=== PATIENT | male | born 1990 | race Caucasian/White ===

== ENCOUNTER 2022-02-10 01:55 | Emergency (ER) | payer OTHER ==
[~2022-02-10] VITALS: Ht 165.1 cm; Wt 65.8 kg
[2022-02-10 02:19] VITALS: BP 131/90
--- NOTE | 2022-02-10 04:30 | NUR ---
SEEN AND EXAMINED BY [facility]
[2022-02-10] MEDS ORDERED: LORA-476 PO (04:36)
[2022-02-10 04:50] VITALS: BP 120/78
== END 2022-02-10 04:50 | disposition home or self-care (01) ==
LOC: MED 01:55
DX: F41.9 Anxiety disorder, unspecified (principal); J02.9 Acute pharyngitis, unspecified; Z79.899 Other long term (current) drug therapy
CPT/HCPCS: 99283